=== PATIENT | female | born 1960 | race Caucasian/White ===

== ENCOUNTER 2019-02-06 11:29 | Emergency (ER) | payer OTHER ==
[~2019-02-06] VITALS: Ht 167.6 cm; Wt 78.5 kg
[2019-02-06] MEDS ORDERED: ASPIRIN 81 MG CHEW TAB PO ONE (11:45)
[2019-02-06 12:15] LABS: BASOPHILS % 0.7 % (0.0-1.0); EOSINOPHILS # (AUTO) 0.2 (0.0-0.4); HEMATOCRIT 40.6 % (34.2-44.1); HEMOGLOBIN 14.2 g/dL (12.0-16.0); LYMPHOCYTES # (AUTO) 2.3 (1.0-3.2); MEAN CORPUSCULAR HEMOGLOBIN 30.2 pg (28-32); MEAN CORPUSCULAR VOLUME 86.4 fL (81-99); MONOCYTES # (AUTO) 0.5 (0.2-0.8); MONOCYTES % 8.6 % (4.4-11.3); NEUTROPHILS # (AUTO) 2.5 (2.1-6.9); NEUTROPHILS % 44.5 % (38.7-80.0); PLATELET COUNT 269 x10e3/uL (140-360)
[2019-02-06] MEDS ORDERED: SODIUM CHLORIDE 0.9% 1000ML 1,000 ML IV STA (12:32)
[2019-02-06 12:34] LABS: ALANINE AMINOTRANSFERASE 39 IU/L (0-55); ALBUMIN 4.5 g/dL (3.5-5.0); ALBUMIN/GLOBULIN RATIO 1.7 (0.8-2.0); ALKALINE PHOSPHATASE 102 IU/L (40-150); ANION GAP 13.9 mmol/L (8-16); BLOOD UREA NITROGEN 12 mg/dL (7-26); BUN/CREATININE RATIO 16 (6-25); CARBON DIOXIDE 21 mmol/L (22-29); CHLORIDE 103 mmol/L (98-107); CREATINE KINASE 68 IU/L (29-168); CREATININE, SERUM 0.77 mg/dL (0.57-1.11); EST GLOMERULAR FILTRATION RATE > 60 ML/MIN (60-); GLUCOSE 108 mg/dL (74-118); POTASSIUM 3.9 mmol/L (3.5-5.1); SODIUM 134 mmol/L (136-145)
[2019-02-06] MEDS ORDERED: DIPHENHYDRAMINE HCL INJ 50 MG/ML VIAL IV ONE (12:45)
[2019-02-06] MEDS ORDERED: METOCLOPRAMIDE HCL 10 MG/2ML VIAL IV ONE (12:45)
[2019-02-06 13:12] LABS: BILIRUBIN,URINE NEGATIVE (NEGATIVE); CLARITY,URINE CLEAR (CLEAR); COLOR,URINE YELLOW (YELLOW); KETONES,URINE NEGATIVE (NEGATIVE); LEUKOCYTE ESTERASE ,URINE NEGATIVE (NEGATIVE); NITRITE,URINE NEGATIVE (NEGATIVE); PROTEIN,URINE DIPSTICK NEGATIVE (NEGATIVE); URINE UROBILINOGEN 0.2 mg/dL (0.2 - 1)
[2019-02-06 13:27] LABS: WBC,URINE (MAN) 0-5 /HPF (0-5)
[2019-02-06 13:28] LABS: EPITHELIAL CELLS,URINE FEW /LPF
--- NOTE | 2019-02-06 13:30 | Diagnostic Imaging Report ---
EXAMINATION: Head CT HISTORY: Left-sided headache, numbness on the left side, blood in the eye COMPARISON: None. TECHNIQUE: Multidetector axial images were obtained without contrast from the foramen magnum to the vertex . The images were reconstructed using brain and bone algorithms. Thin section brain images were reformatted into coronal and sagittal planes. Image quality: Motion/streaking artifact limits the evaluation of the skull base and posterior cranial fossa. Dose modulation, iterative reconstruction, and/or weight based adjustment of the mA/kV was utilized to reduce the radiation dose to as low as reasonably achievable. FINDINGS: Parenchyma: 1. No abnormal densities. 2. No mass or hemorrhage. No CT evidence of acute territorial vascular insult. Extra-axial spaces:No abnormal density. No extra-axial fluid collections Brain volume: Normal for age. Ventricles: No hydrocephalus or displacement. Arteries: No density suggestive of thrombus. Dural sinuses: No abnormal density. Extra-axial spaces: No abnormal density. Foramen magnum: No mass, Chiari malformation, or basilar invagination. Sella: No obvious mass. Paranasal/mastoid sinuses: Imaged portions unremarkable. Skull/Scalp: No lytic or blastic lesions. No fractures. IMPRESSION: No intracranial abnormalities. Particularly no hemorrhage or acute cortical infarcts. Signed by: Dr. Lida Garcia M.D. on 02/06/2019 1:27 PM
--- NOTE | 2019-02-06 14:30 | NUR ---
PT RESTING COMFORTABLY IN BED DENIES PAIN OR ANY OTHER COMPLAINTS AT THIS TIME
--- NOTE | 2019-02-06 14:37 | Diagnostic Imaging Report ---
EXAMINATION: CT angiogram of the head. HISTORY: Left-sided headache with numbness for the last week, COMPARISON STUDIES: Head CT 02/06/2019 TECHNIQUE: Axial images were obtained from the skull base to the vertex. Coronal and sagittal images reconstructed from the axial data. Intravenous contrast: 100 mL of [id number] For optimization of of anatomic evaluation, multi-planar reconstructions, maximum intensity projections, and advanced 3D off-line post-processing was obtained and performed on a dedicated stand-alone workstation under the direct supervision of the interpreting physician. Dose modulation, iterative reconstruction, and/or weight based adjustment of the mA/kV was utilized to reduce the radiation dose to as low as reasonably achievable. FINDINGS: Internal carotid arteries and proximal branches: Right: Patent. No abnormalities. Left: Patent. No abnormalities. Vertebral arteries: Patent. No abnormalities. Basilar artery: Patent. No abnormalities. Posterior cerebral arteries: Patent. No abnormalities. Anatomical variants: Acom :Present Pcom: Patent bilaterally Vertebral arteries: The left is dominant IMPRESSION: Normal CT angiogram of the head, particularly no large vessel occlusion, vascular malformations or aneurysms are seen. Signed by: Dr. Lida Garcia M.D. on 02/06/2019 2:34 PM
[2019-02-06] MEDS ORDERED: FIORINAL 50-321 EACH PO (14:59)
[2019-02-06 15:18] VITALS: BP 114/63
[2019-02-06] MEDS ORDERED: SODIUM CHLORIDE 0.9% 100 ML 100 ML ONE (17:47)
[2019-02-06] MEDS ORDERED: IOPAMIDOL 370 MG/ML 200 ML INFUS..BTL INJ ONE (17:47)
== END 2019-02-06 15:34 | disposition home or self-care (01) ==
LOC: ER 11:29
DX: G44.89 Other headache syndrome (principal); G43.111 Migraine with aura, intractable, with status migrainosus; R53.1 Weakness
CPT/HCPCS: 36415; 70450; 70496; 80053; 81001; 82550; 82553; 84484; 85025; 99284; J1200; J2765; J7030; Q9967

== ENCOUNTER → 2019-03-11 | Outpatient (CLI) | payer OTHER ==
[~2019-03-11] MED LIST: FIORINAL 50-321 EACH PO
--- NOTE | 2019-03-11 10:22 | Diagnostic Imaging Report ---
History: Headache, left-sided facial numbness x2 weeks Comparison studies: Head CT 02/06/2019 Technique: Sagittal and axial T2 FS, axial DWI, axial T2*GRE, axial T1 FLAIR and axial coronal T2 FLAIR. Intravenous contrast: None Findings: Scalp: Normal in signal. No masses. Bone marrow: Normal in signal intensity. Brain sulci: Appropriate for age. Ventricles: Normal in size. No hydrocephalus. Extra axial spaces: No mass, no fluid collection. Parenchyma: No abnormal signal intensities. No masses, hemorrhage, acute or chronic vascular insults. Suprasellar region: No abnormalities. Craniocervical junction: Patent foramen magnum. No Chiari malformation. Vessels: Normal flow-voids in the arteries and sinuses. Inflammatory changes: Nonspecific inflammatory mucosal thickening in the right frontal sinus, bilateral ethmoid air cells and left maxillary sinus with small T1 hyperintense secretions in the right frontal sinus. IMPRESSION: 1. No intracranial abnormalities. 2. Nonspecific inflammatory changes in the paranasal sinuses. Signed by: Dr. Aravind Douglass M.D. on 03/11/2019 10:18 AM
== END ==
LOC: MRI 08:36
PROVIDERS: ATTEND Psychiatry & Neurology Neurology
DX: R20.8 Other disturbances of skin sensation (principal); G44.52 New daily persistent headache (NDPH); I10 Essential (primary) hypertension; H92.02 Otalgia, left ear; M54.12 Radiculopathy, cervical region
CPT/HCPCS: 70551

== ENCOUNTER → 2019-04-24 | Outpatient (CLI) | payer OTHER ==
--- NOTE | 2019-04-24 12:50 | Diagnostic Imaging Report ---
MRI SPINE CERVICAL WO HISTORY: Left-sided numbness, tingling, headache; cervical radiculopathy COMPARISON: MRI of the brain 03/11/2019 TECHNIQUE: Sagittal T1, sagittal T2, sagittal inversion recovery, axial T2 and axial T1 weighted MR images of the cervical spine were obtained without intravenous contrast. DISCUSSION: Alignment: Normal lordosis. No scoliosis. Vertebrae: No definite evidence for fractures, infection, or neoplasm. Cervicomedullary junction: No abnormalities. Spinal cord: The left ventral cord is mildly flattened by a posterior disc osteophyte complex at C6-C7. The cord is otherwise normal in signal and morphology from the foramen magnum through T3-T4. Soft tissues: No signal abnormalities. Additional findings: Mild scattered paranasal sinus mucosal thickening is partially visualized. Mild multilevel cervical disc degeneration is present. Mild atlantoaxial arthrosis is present as well. C2-C3: Patent canal and foramina. C3-C4: Mild left foraminal stenosis due to uncovertebral and facet arthrosis. No significant canal or right foraminal stenosis. C4-C5: Mild canal stenosis due to posterior disc osteophyte complex and ligamentum flavum thickening. Mild to moderate right and mild left foraminal stenoses due to uncovertebral and facet arthrosis. C5-C6: Mild canal stenosis due to posterior disc osteophyte complex and ligamentum flavum thickening. Mild to moderate bilateral foraminal stenoses due to uncovertebral and facet arthrosis. C6-C7: Mild canal stenosis due to posterior disc osteophyte complex, eccentric to the left, and ligamentum flavum thickening. Mild right and mild to moderate left foraminal stenoses due to uncovertebral and facet arthrosis. C7-T1: Patent canal and foramina. IMPRESSION: 1. Mild multilevel cervical disc degeneration. 2. Mild degenerative canal stenoses from C4-C5 to C6-C7. The left ventral cord is mildly flattened by a posterior disc osteophyte complex at C6-C7. 3. Mild to moderate multilevel bilateral degenerative foraminal stenoses as described above. Signed by: Dr. Rayshawn Emery M.D. on 04/24/2019 12:47 PM
== END ==
LOC: MRI 09:49
PROVIDERS: ATTEND Psychiatry & Neurology Neurology
DX: M54.12 Radiculopathy, cervical region (principal)
CPT/HCPCS: 72141

== ENCOUNTER → 2021-11-21 | Outpatient (CLI) | payer BC | LOC: MRI 12:23 | PROVIDERS: ATTEND Psychiatry & Neurology Neurology | DX: M54.12 Radiculopathy, cervical region (principal); R20.2 Paresthesia of skin; N39.42 Incontinence without sensory awareness | CPT/HCPCS: 72141; 72146 ==